=== PATIENT | female | born 1985 | race American Indian/Alaskan Native ===

== ENCOUNTER 2016-12-27 23:10 | Emergency (ER) | payer SELFPAY ==
[2016-12-28] MEDS ORDERED: MAGIC MOUTHWASH PO ONE (04:27)
[2016-12-28] MEDS ORDERED: DELTASONE PO ONE (04:27)
--- NOTE | 2016-12-28 04:53 | Emergency Department Report ---
HPI - General Chief Complaint: Upper Respiratory Infection Time Seen by Provider: 12/28/16 04:24 - HPI HPI: Patient is a 31-year-old female who presents to ED complaining of throat pain 1 days. Patient describes pain as throbbing in nature, 8 out of 10 intensity, nonradiating, localized to her throat. Admits pain with swallowing and eating. Patient admits no appetite due to throat pain. Patient admits generalized body aching. Patient feels like she has flulike symptoms. Patient denies difficulty swallowing and chills. Patient states she took Sudafed and throat lozenges. Patient denies nausea/vomiting/abdominal pain/shortness of breath/chest pain/ headache. . ED Past Medical Hx - Past Medical History Previous Medical History?: No - Medications Home Medications: Home Medications Medication Instructions Recorded Confirmed Last Taken Type Ibuprofen [Motrin] 600 mg PO Q8H PRN #30 tablet 12/28/16 Unknown Rx Prednisone [predniSONE 5 mg (6-Day 5 mg PO .TAPER #1 tab.ds.pk 12/28/16 Unknown Rx Pack, 21 Tabs)] ED Review of Systems ROS: Stated complaint: BODY ACHES, EAR POPPING Other details as noted in HPI Constitutional: malaise. denies: chills, fever Eyes: denies: eye pain, eye discharge, vision change ENT: throat pain. denies: ear pain, dental pain, hearing loss Respiratory: denies: cough, shortness of breath, wheezing Cardiovascular: denies: chest pain, palpitations Endocrine: no symptoms reported. denies: flushing Gastrointestinal: denies: abdominal pain, nausea, vomiting, diarrhea, constipation, hematochezia Genitourinary: denies: urgency, dysuria, discharge Musculoskeletal: denies: back pain, joint swelling, arthralgia Skin: denies: rash, lesions Neurological: denies: headache, weakness, numbness, paresthesias, confusion, abnormal gait Psychiatric: denies: anxiety, depression Hematological/Lymphatic: denies: easy bleeding, easy bruising, swollen glands Physical Exam - Physical Exam Vital Signs: Vital Signs 12/27/16 23:33 Temperature 98.6 F Pulse Rate 86 Respiratory 18 Rate Blood Pressure 161/101 O2 Sat by Pulse 100 Oximetry Physical Exam: GENERAL: Alert and oriented x3, no apparent distress, Normal Gait, atraumatic. HEAD: Head is normocephalic and a-traumatic. EYES: Extra ocular muscles are intact. Pupils are equal, round, and reactive to light and accommodation. EARS: symetrical, atraumatic, non tender, ear canal clear and moderate cerumen, tympanic membrance non inflamed. gross auditory nml bilaterally. NOSE: Nose symetrical, Nontender,Nares appeared normal. MOUTH:Mouth is well hydrated and without lesions. Tonsils nonerythematous , moderately swollen with mild exudate, Uvula midline, Tongue not elevated. Mucous membranes are moist. Posterior pharynx with exudate or lesions. Postnasal drip, Patent airways. NECK: Supple. Non edematous, No carotid bruits. No lymphadenopathy or thyromegaly. LUNGS: Symetrical with respiration, No wheezing, no rales or crackles, CTAB. HEART: S1, S2 present, regular rate and rhythm without murmur, no rubs, no gallops. ABDOMEN: No organomegaly was noted,Positive bowel sounds, soft, and non- distended. . Nontender to palpation on all Quadrants, NO CVA tenderness. EXTREMITIES/MUSCULOSKELETAL: No cyanosis, clubbing, rash, lesions or edema. Full ROM bilaterally. UE/LE Pulses 2+ bilaterally. NEUROLOGIC: No focal Deficit, Cranial nerves II through XII are grossly intact. No loss of sensation, SKIN: Warm and dry, No lesions, No ulceration or induration present. ED Course Vital Signs 12/27/16 23:33 Temperature 98.6 F Pulse Rate 86 Respiratory 18 Rate Blood Pressure 161/101 O2 Sat by Pulse 100 Oximetry ED Medical Decision Making - Medical Decision Making 31-year-old female presents with upper respiratory infection. ED course: Patient received Magic mouthwash 15 mL, 60 mg of prednisone. Rapid strep test negative, rapid influenza and be negative Discussed findings with patient. Vital signs stable. Patient is in no acute or respiratory distress Patient verbalizes understanding to follow up. Discussed home medications and to take medication as prescribed Critical care attestation.: If time is entered above; I have spent that time in minutes in the direct care of this critically ill patient, excluding procedure time. ED Disposition Clinical Impression: Tonsillitis URI (upper respiratory infection) Qualifiers: URI type: unspecified URI Qualified Code(s): J06.9 - Acute upper respiratory infection, unspecified Disposition: DISCHARGED TO HOME OR SELFCARE Is pt being admited?: No Does the pt Need Aspirin: No Condition: Stable Instructions: Tonsillitis (ED), Upper Respiratory Infection (ED) Additional Instructions: Increase hydration. Take vitamin C daily. Rest If fever rises or worsen and return to ED. Follow-up with primary care physician Prescriptions: Ibuprofen [Motrin] 600 mg PO Q8H PRN #30 tablet PRN Reason: Pain Prednisone [predniSONE 5 mg (6-Day Pack, 21 Tabs)] 5 mg PO .TAPER #1 tab.ds.pk Referrals: PRIMARY CARE, [Primary Care Provider] - 3-5 Days MACKENZIE ASH MD [Referring] - 3-5 Days [facility] [Outside] - 3-5 Days [facility] [Outside] - 3-5 Days Forms: Work/School Release Form(ED) Time of Disposition: 05:02
[2016-12-28 05:25] VITALS: BP 108/69
== END 2016-12-28 05:14 | disposition home or self-care (01) ==
LOC: ED 23:10
DX: J03.90 Acute tonsillitis, unspecified (principal); J06.9 Acute upper respiratory infection, unspecified
CPT/HCPCS: 87116; 87400; 87430; 99283; J7512

== ENCOUNTER 2017-04-10 15:06 | Emergency (ER) | payer BC ==
[2017-04-10] MEDS ORDERED: NACL 0.9% 1000 ML 1,000 ML IV ONE (15:38)
[2017-04-10] MEDS ORDERED: TORADOL IV ONE (16:12)
[2017-04-10 16:27] LABS: Basophils % (Auto) 0.5 % (0.0-1.8); Eosinophils % (Auto) 2.9 % (0.0-4.3); Hematocrit 37.7 % (30.3-42.9); Mean Corpuscular HGB Conc 32 % (30-34); Mean Corpuscular Hemoglobin 26 pg (28-32); Mean Corpuscular Volume 83 fl (79-97); Platelet Count 240 K/mm3 (140-440); Red Blood Count 4.55 M/mm3 (3.65-5.03); Red Cell Distribution Width 13.8 % (13.2-15.2); White Blood Count 8.1 K/mm3 (4.5-11.0)
[2017-04-10 16:37] LABS: Anion Gap 15 mmol/L; BUN/Creatinine Ratio 13.75; Blood Urea Nitrogen 11 mg/dL (7-17); Calcium 8.9 mg/dL (8.4-10.2); Carbon Dioxide 29 mmol/L (22-30); Chloride 96.5 mmol/L (98-107); Glucose 92 mg/dL (65-100); Potassium 3.9 mmol/L (3.6-5.0); Sodium 137 mmol/L (137-145)
--- NOTE | 2017-04-10 18:15 | Emergency Department Report ---
HPI - General Chief Complaint: Chest Pain Time Seen by Provider: 04/10/17 15:37 - HPI HPI: The patient's 31-year-old female who presents for evaluation of chest pain. The patient reports chest pain for the past 4 days, moderate in severity, radiating to the neck, exacerbated with movement of the arms bilaterally, constant since onset. The patient denies fever, neck pain, parasthesias, dyspnea , cough, hemoptysis, palpitations, dizziness, syncope, unilateral leg swelling, calf muscle pain. Patient also denies cocaine or other stimulant use, history of DVT or PE, recent immobilization, or history of cancer. ED Past Medical Hx - Past Medical History Previous Medical History?: No - Surgical History Past Surgical History?: No - Social History Smoking Status: Never Smoker Substance Use Type: None - Medications Home Medications: Home Medications Medication Instructions Recorded Confirmed Last Taken Type Ibuprofen [Motrin] 600 mg PO Q8H PRN #30 tablet 12/28/16 Unknown Rx Prednisone [predniSONE 5 mg (6-Day 5 mg PO .TAPER #1 tab.ds.pk 12/28/16 Unknown Rx Pack, 21 Tabs)] Ibuprofen [Motrin] 800 mg PO Q8HR PRN #15 tablet 04/10/17 Unknown Rx traMADol [Ultram 50 MG tab] 50 mg PO Q6HR PRN #14 tablet 04/10/17 Unknown Rx ED Review of Systems ROS: Stated complaint: CHEST/NECK PAIN Other details as noted in HPI Constitutional: denies: fever ENT: denies: throat or neck pain Respiratory: denies: cough, shortness of breath Cardiovascular: rep[orts chest pain Endocrine: denies unexplained weight loss or gain Gastrointestinal: denies: abdominal pain, nausea Genitourinary: denies: dysuria Musculoskeletal: denies: leg swelling Skin: denies: rash Neurological: denies: headache Hematological/Lymphatic: denies: easy bleeding or easy bruising Psych: denies sadness or hopelessness Physical Exam - Physical Exam Vital Signs: Vital Signs 04/10/17 15:11 Temperature 98.4 F Pulse Rate 98 H Respiratory 20 Rate Blood Pressure 157/103 O2 Sat by Pulse 100 Oximetry Physical Exam: General: well-nourished, well-developed, no acute distress Head: Normocephalic, atraumatic Eyes: normal sclera ENT: Mucous membranes are pale and dry Neck: No neck stiffness, no cervical adenopathy Respiratory: Breath sounds equal bilaterally, no wheezing, rales, or rhonchi Cardio: S1 and S2 present, no murmurs, rubs, gallops, capillary refill is delayed Abdomen: Normoactive bowel sounds, soft abdomen, no rigidity, no guarding or rebound tenderness Chest WALL/Back: No tenderness to palpation of the chest wall, no CVA tenderness with percussion Musc: No pitting edema Skin: No rash Neuro: no facial drooping, normal speech Psych: Normal affect ED Course Vital Signs 04/10/17 15:11 Temperature 98.4 F Pulse Rate 98 H Respiratory 20 Rate Blood Pressure 157/103 O2 Sat by Pulse 100 Oximetry ED Medical Decision Making - Lab Data Result diagrams: 04/10/17 16:09 04/10/17 16:09 - Medical Decision Making The patient was seen and examined by myself. The patient is placed on a cardiac rehab nurse and continuous pulse ox. On initial evaluation, the patient was found to be in no distress. EKG was negative for findings suggestive of acute cardiac infarct. Labs and imaging are obtained. The patient is given 1 L normal saline fluid bolus for treatment of her dehydration and IV Toradol for treatment of her chest pain. Chest x-ray is negative for pneumothorax, focal consolidation, pulmonary vascular congestion, pleural effusion, or other obvious acute cardiopulmonary disease process. Lab results were non-concerning including levels of troponin, WBC, hemoglobin, hematocrit, electrolytes, renal function, and normal d-dimer level. The patient was reevaluated and reported that their symptoms were markedly improved. As the patient has a THADDEUS risk score less than 2, and a well's score less than 2, the patient is at low risk of ACS or pulmonary emboli etiology of their symptoms. The patient is stable for discharge with outpatient follow-up. The patient is given follow-up and return instructions. The patient expressed understanding and agreed with the plan. The patient is discharged in stable condition. Critical care attestation.: If time is entered above; I have spent that time in minutes in the direct care of this critically ill patient, excluding procedure time. ED Disposition Clinical Impression: Acute chest pain, Dehydration Disposition: DC-01 TO HOME OR SELFCARE Is pt being admited?: No Does the pt Need Aspirin: No Condition: Stable Instructions: Chest Pain (ED) Referrals: PRIMARY CARE, [Primary Care Provider] - 3-5 Days Time of Disposition: 18:12
[2017-04-10 18:29] VITALS: BP 156/89
--- NOTE | 2017-04-11 09:00 | XRay Report ---
Single chest: History: Chest pain. Findings: Normal cardiomediastinal silhouette. Trachea is midline. No consolidation, pneumothorax or pleural effusion. Impression: No acute cardiopulmonary findings.
== END 2017-04-10 18:35 | disposition home or self-care (01) ==
LOC: ED 15:06
DX: R07.9 Chest pain, unspecified (principal); I10 Essential (primary) hypertension
CPT/HCPCS: 36415; 71010; 80048; 83880; 84484; 84703; 85025; 85379; 93005; 93010; 96361; 96374; 99285; J1885; J7030

== ENCOUNTER 2019-05-16 09:58 | Emergency (ER) | payer BC ==
[2019-05-16 10:07] VITALS: BP 152/93
[2019-05-16] MEDS ORDERED: TETRACAINE 0.5% OU PRN (11:24)
--- NOTE | 2019-05-16 12:02 | Emergency Department Report ---
ED Eye Problem HPI - General Chief complaint: Eye Problems Stated complaint: LFT EYE/PAIN Time Seen by Provider: 05/16/19 10:36 Source: patient Mode of arrival: Ambulatory Limitations: No Limitations - History of Present Illness Initial comments: The patient complains of left eye pain that started on Thursday. Patient denies any injury to her left eye. Patient does also explained that she's had some redness of the left eye as well. Denies pain on movement of the left eye. Concerned because her cousin was recently diagnosed with high intraocular pressures chief complaint: eye pain, eye redness -: Gradual Onset Description: gradual Location: left eye Place: home If Injury: none Eye Symptoms: pain Severity: mild Severity scale (0 -10): 2 If Pain, Quality: aching Consistency: constant Associated Symptoms: none Treatments Prior to Arrival: none - Related Data Previous Rx's Medication Instructions Recorded Last Taken Type Ibuprofen [Motrin] 600 mg PO Q8H PRN #30 tablet 12/28/16 Unknown Rx Prednisone [predniSONE 5 mg (6-Day 5 mg PO .TAPER #1 tab.ds.pk 12/28/16 Unknown Rx Pack, 21 Tabs)] Ibuprofen [Motrin] 800 mg PO Q8HR PRN #15 tablet 04/10/17 Unknown Rx traMADol [Ultram 50 MG tab] 50 mg PO Q6HR PRN #14 tablet 04/10/17 Unknown Rx Amoxicillin/Potassium Clav 1 each PO BID #14 tablet 05/16/19 Unknown Rx [Augmentin 875-125 Tablet] Allergies Allergy/AdvReac Type Severity Reaction Status Date / Time No Known Allergies Allergy Verified 12/28/16 04:34 ED Review of Systems ROS: Stated complaint: LFT EYE/PAIN Other details as noted in HPI Constitutional: denies: chills, fever Eyes: eye pain. denies: eye discharge, vision change ENT: denies: ear pain, throat pain Respiratory: denies: cough, shortness of breath, wheezing Cardiovascular: denies: chest pain, palpitations Endocrine: no symptoms reported Gastrointestinal: denies: abdominal pain, nausea, diarrhea Genitourinary: denies: urgency, dysuria, discharge Musculoskeletal: denies: back pain, joint swelling, arthralgia Skin: denies: rash, lesions Neurological: denies: headache, weakness, paresthesias Psychiatric: denies: anxiety, depression Hematological/Lymphatic: denies: easy bleeding, easy bruising ED Past Medical Hx - Past Medical History Previous Medical History?: No - Surgical History Past Surgical History?: No - Social History Smoking Status: Never Smoker Substance Use Type: None - Medications Home Medications: Home Medications Medication Instructions Recorded Confirmed Last Taken Type Ibuprofen [Motrin] 600 mg PO Q8H PRN #30 tablet 12/28/16 Unknown Rx Prednisone [predniSONE 5 mg (6-Day 5 mg PO .TAPER #1 tab.ds.pk 12/28/16 Unknown Rx Pack, 21 Tabs)] Ibuprofen [Motrin] 800 mg PO Q8HR PRN #15 tablet 04/10/17 Unknown Rx traMADol [Ultram 50 MG tab] 50 mg PO Q6HR PRN #14 tablet 04/10/17 Unknown Rx Amoxicillin/Potassium Clav 1 each PO BID #14 tablet 05/16/19 Unknown Rx [Augmentin 875-125 Tablet] ED Physical Exam - General Limitations: No Limitations General appearance: alert, in no apparent distress - Head Head exam: Present: atraumatic, normocephalic - Eye Eye exam: Present: normal appearance, PERRL, EOMI, conjunctival injection, periorbital swelling, periorbital tenderness, other (there is no pain with extraocular movements of the eye; 20/20 bilaterally; no visual field deficits; Kimo-Pen shows average pressure of 18). Absent: scleral icterus - ENT ENT exam: Present: mucous membranes moist - Neck Neck exam: Present: normal inspection - Respiratory Respiratory exam: Present: normal lung sounds bilaterally. Absent: respiratory distress - Cardiovascular Cardiovascular Exam: Present: regular rate, normal rhythm. Absent: systolic murmur, diastolic murmur, rubs, gallop - GI/Abdominal GI/Abdominal exam: Present: soft, normal bowel sounds - Extremities Exam Extremities exam: Present: normal inspection - Back Exam Back exam: Present: normal inspection - Neurological Exam Neurological exam: Present: alert, oriented X3, CN II-XII intact. Absent: motor sensory deficit - Psychiatric Psychiatric exam: Present: normal affect, normal mood - Skin Skin exam: Present: warm, dry, intact, normal color. Absent: rash ED Course Vital Signs 05/16/19 10:04 Temperature 97.8 F Pulse Rate 85 Respiratory 18 Rate Blood Pressure 152/93 O2 Sat by Pulse 100 Oximetry ED Medical Decision Making - Medical Decision Making discussed plan of care with patient Critical care attestation.: If time is entered above; I have spent that time in minutes in the direct care of this critically ill patient, excluding procedure time. ED Disposition Clinical Impression: Periorbital cellulitis of left eye Disposition: DC- TO HOME OR SELFCARE Is pt being admited?: No Does the pt Need Aspirin: No Condition: Stable Instructions: Periorbital Cellulitis in Children (ED) Prescriptions: Amoxicillin/Potassium Clav [Augmentin 875-125 Tablet] 1 each PO BID #14 tablet Referrals: SUNITA BERNAL MD [Primary Care Provider] - 3-5 Days LISA DANIEL MD [Staff Physician] - 3-5 Days Time of Disposition: 12:02
== END 2019-05-16 12:18 | disposition home or self-care (01) ==
LOC: ED 09:58
DX: H05.012 Cellulitis of left orbit (principal)
CPT/HCPCS: 99282

== ENCOUNTER 2021-01-06 10:07 | Emergency (ER) | payer BC ==
[2021-01-06 10:24] VITALS: BP 168/106
--- NOTE | 2021-01-06 10:35 | Emergency Department Report ---
ED General Adult HPI - General Chief complaint: Headache Stated complaint: HEAD PAIN/BODYACHES Time Seen by Provider: 01/06/21 10:14 Source: patient Mode of arrival: Ambulatory Limitations: No Limitations - History of Present Illness Initial comments: 35-year-old F [place] female with asthma department complaining of a 1 to 2-day history of nasal congestion with clear drainage and sinus pressure which has been worsening over the past day. No fever, chills, sweats. No hemoptysis, hematemesis hematochezia no epistaxis. She reports no lightheadedness, no dizziness no ringing in the ears no hearing loss. Severity scale (0 -10): 3 - Related Data Previous Rx's Medication Instructions Recorded Last Taken Type Ibuprofen [Motrin] 600 mg PO Q8H PRN #30 tablet 12/28/16 Unknown Rx Prednisone [predniSONE 5 mg (6-Day 5 mg PO .TAPER #1 tab.ds.pk 12/28/16 Unknown Rx Pack, 21 Tabs)] Ibuprofen [Motrin] 800 mg PO Q8HR PRN #15 tablet 04/10/17 Unknown Rx traMADoL [Ultram 50 MG tab] 50 mg PO Q6HR PRN #14 tablet 04/10/17 Unknown Rx Amoxicillin/Potassium Clav 1 each PO BID #14 tablet 05/16/19 Unknown Rx [Augmentin 875-125 Tablet] Fluticasone [Flonase] 1 spray NS QDAY #1 bottle 01/06/21 Unknown Rx Levocetirizine Dihydrochloride 5 mg PO DAILY #30 tablet 01/06/21 Unknown Rx [Xyzal] Allergies Allergy/AdvReac Type Severity Reaction Status Date / Time No Known Allergies Allergy Verified 12/28/16 04:34 ED Review of Systems ROS: Stated complaint: HEAD PAIN/BODYACHES Other details as noted in HPI Comment: All other systems reviewed and negative ED Past Medical Hx - Past Medical History Previous Medical History?: Yes Hx Hypertension: Yes - Surgical History Past Surgical History?: No - Social History Smoking Status: Never Smoker Substance Use Type: None - Medications Home Medications: Home Medications Medication Instructions Recorded Confirmed Last Taken Type Ibuprofen [Motrin] 600 mg PO Q8H PRN #30 tablet 12/28/16 Unknown Rx Prednisone [predniSONE 5 mg (6-Day 5 mg PO .TAPER #1 tab.ds.pk 03/19/17 Unknown Rx Pack, 21 Tabs)] Ibuprofen [Motrin] 800 mg PO Q8HR PRN #15 tablet 04/10/17 Unknown Rx traMADoL [Ultram 50 MG tab] 50 mg PO Q6HR PRN #14 tablet 04/10/17 Unknown Rx Amoxicillin/Potassium Clav 1 each PO BID #14 tablet 05/16/19 Unknown Rx [Augmentin 875-125 Tablet] Fluticasone [Flonase] 1 spray NS QDAY #1 bottle 01/06/21 Unknown Rx Levocetirizine Dihydrochloride 5 mg PO DAILY #30 tablet 01/06/21 Unknown Rx [Xyzal] ED Physical Exam - General Limitations: No Limitations General appearance: alert, in no apparent distress - Head Head exam: Present: atraumatic, normocephalic - Eye Eye exam: Present: normal appearance, PERRL, EOMI Pupils: Present: normal accommodation - ENT ENT exam: Present: normal exam, mucous membranes moist, TM's normal bilaterally, other (Nasal congestion is noted. Some pressure to the ethmoid sinuses and frontal sinuses.) - Neck Neck exam: Present: normal inspection, full ROM. Absent: tenderness, lymphadenopathy - Respiratory Respiratory exam: Present: normal lung sounds bilaterally. Absent: respiratory distress, wheezes, rales, chest wall tenderness - Cardiovascular Cardiovascular Exam: Present: regular rate, normal rhythm. Absent: systolic murmur, diastolic murmur, rubs, gallop - GI/Abdominal GI/Abdominal exam: Present: soft, normal bowel sounds - Extremities Exam Extremities exam: Present: normal inspection - Back Exam Back exam: Present: normal inspection - Neurological Exam Neurological exam: Present: alert, oriented X3 - Psychiatric Psychiatric exam: Present: normal affect, normal mood - Skin Skin exam: Present: warm, dry, intact, normal color. Absent: rash ED Course Vital Signs 01/06/21 10:15 Temperature 99.6 F Pulse Rate 106 H Respiratory 20 Rate Blood Pressure 168/106 [Right] O2 Sat by Pulse 99 Oximetry Critical care attestation.: If time is entered above; I have spent that time in minutes in the direct care of this critically ill patient, excluding procedure time. ED Disposition Clinical Impression: Nasal congestion, History of essential hypertension, Hayfever Disposition: TO HOME OR SELFCARE Is pt being admited?: No Does the pt Need Aspirin: No Condition: Stable Instructions: Allergic Rhinitis, Adult, [id number], Upper Respiratory Infection, Adult, [id number], Hypertension, Adult, [id number], Allergic Rhinitis, Adult Prescriptions: Fluticasone [Flonase] 1 spray NS QDAY #1 bottle Levocetirizine Dihydrochloride [Xyzal] 5 mg PO DAILY #30 tablet Referrals: [facility] [Provider Group] - 3-5 Days AVILA THACKER MD [Staff Physician] - 3-5 Days
== END 2021-01-06 10:40 | disposition home or self-care (01) ==
LOC: ED 10:07
DX: R09.81 Nasal congestion (principal); I10 Essential (primary) hypertension; R50.9 Fever, unspecified; Z79.899 Other long term (current) drug therapy
CPT/HCPCS: 99282